=== PATIENT | female | born 1995 | race African-American/Black ===

== ENCOUNTER 2024-03-26 15:40 | Emergency (ER) | payer OTHER ==
[~2024-03-26] VITALS: Ht 154.9 cm; Wt 85.0 kg
[2024-03-26 15:44] VITALS: BP 130/77; PULSE 79; RESP 16; TEMP 98.7; O2SAT 97
== END 2024-03-26 16:28 | disposition left against medical advice (07) ==
LOC: ER 15:40
DX: R21 Rash and other nonspecific skin eruption (principal); Z53.21 Procedure and treatment not carried out due to patient leaving prior to being seen by health care provider